=== PATIENT | female | born 1960 | race Caucasian/White ===

== ENCOUNTER 2019-01-03 11:08 | Day surgery (SDC) | payer SELFPAY ==
[2019-01-03] VITALS (10 sets, daily range): BP systolic 106–141; BP diastolic 56–99; PULSE 62–73; TEMP 98.7
[~2019-01-03] VITALS: Ht 162.7 cm; Wt 86.0 kg
[2019-01-03] MEDS ORDERED: GLUCOTROL10 MG PO (11:31)
[2019-01-03] MEDS ORDERED: GLUCOPHAGE1000 MG PO (11:32)
[2019-01-03] MEDS ORDERED: LAMICTAL 100MG100 MG PO (11:34)
[2019-01-03] MEDS ORDERED: ASPIRIN E.C. 8181 MG PO (11:34)
[2019-01-03] MEDS ORDERED: COREG 3.123.125 MG/T PO (11:35)
[2019-01-03] MEDS ORDERED: ZOCOR 40MG40 MG PO (11:35)
[2019-01-03 11:42] LABS: MEAN CELL VOLUME 89 fl (80.0-100.0); MEAN CORPUSCULAR HEMOGLOBIN 30 pg (27.0-31.0); MEAN CORPUSCULAR HGB CONC 33 g/dl (33.0-37.0); MEAN PLATELET VOLUME 10.5 fl (7.4-10.4); PLATELET COUNT 218 K/mm3 (130-400); REDCELL DISTRIBUTION WIDTH-CV 12.2 % (11.5-14.5)
[2019-01-03 11:46] LABS: PROTHROMBIN TIME 11.5 SECONDS (9.7-12.8)
[2019-01-03 11:52] LABS: CALCIUM 9.1 mg/dL (8.4-10.2); CREATININE, serum 0.91 (0.52-1.25); POTASSIUM 4.2 mmol/L (3.4-5.0)
--- NOTE | 2019-01-03 14:00 | NUR ---
SEE MERGE REPORTS FOR MEDICATION ADMINISTRATION TIMES AND INTRA/POST PROCEDURE SEDATION ASSESSMENTS.
[2019-01-03] MEDS ORDERED: COREG 6.256.25 MG/TA PO (14:46)
--- NOTE | 2019-01-03 15:00 | NUR ---
Pt returned to EU 12 per bed s/p heart cath. Pt resting well, family at bedside.
--- NOTE | 2019-01-03 16:39 | NUR ---
Report to Traci Shen RN who assumed care at this time.
--- NOTE | 2019-01-03 17:00 | NUR ---
3 CC Air out of band at 1700 and 3 cc out at 1710. No bleeding noted. VSS.
--- NOTE | 2019-01-03 17:44 | NUR ---
Radial cuff completely deflated. No bleeding noted. Pressure dressing applied. INT discontinued intact. Discharge instructions given. Pt ambulated in butler with steady gait. Transferred to private car by vijay
== END 2019-01-03 17:45 | disposition home or self-care (01) ==
LOC: COL.CAR 11:08
PROVIDERS: Internal Medicine Cardiovascular Disease
DX: I20.8 Other forms of angina pectoris (principal); G43.909 Migraine, unspecified, not intractable, without status migrainosus; R94.39 Abnormal result of other cardiovascular function study; E78.2 Mixed hyperlipidemia; E78.00 Pure hypercholesterolemia, unspecified; E11.9 Type 2 diabetes mellitus without complications; I10 Essential (primary) hypertension; F32.9 Major depressive disorder, single episode, unspecified; K59.00 Constipation, unspecified; R32 Unspecified urinary incontinence; K31.84 Gastroparesis; J45.909 Unspecified asthma, uncomplicated; Z90.49 Acquired absence of other specified parts of digestive tract; Z90.710 Acquired absence of both cervix and uterus; Z79.84 Long term (current) use of oral hypoglycemic drugs; Z88.5 Allergy status to narcotic agent; Z88.2 Allergy status to sulfonamides; Z83.3 Family history of diabetes mellitus; Z82.49 Family history of ischemic heart disease and other diseases of the circulatory system; Z80.1 Family history of malignant neoplasm of trachea, bronchus and lung; Z82.3 Family history of stroke
CPT/HCPCS: J1644; J2250; J3010; Q9967